=== PATIENT | male | born 1950 | race Caucasian/White ===

== ENCOUNTER 2016-05-02 10:58 | Emergency (ER) | payer OTHER ==
[~2016-05-02] VITALS: Ht 180.3 cm; Wt 70.1 kg
[~2016-05-02 10:58] MED LIST: ADVAIR 250/501 DISK; ADVAIR 250/501 DISK IH; ASPIRIN E.C.81 M1 PO; Aspirin E.C. PO; CARDIZEM CD,CA180 MG PO; DAILY VALUE1 EACH PO; DALIRESP500 MCG PO; DIGOXIN250 MCG PO; DULERA 100 MCG/13 GM IH; FISH OIL SOFTG1 EACH; FLONASE16 G1 BOTH NARES; HABITROL,NICODE14 MG TD; K-DUR10 MEQ PO; LASIX40 MG PO; LEVAQUIN750 MG PO; MIRAPEX0.5 MG PO; ONE DAILY FOR1 EACH; PREDNISONE10 MG PO; Proventil,Ventolin H IH; SPIRIVA1 INHALATI; SPIRIVA1 INHALATI IH; ST. JOSEPH ASPI81 MG PO; Sterapred DS 10 mg U PO; THEO-24200 MG PO; VENTOLIN HFA18 GM; VENTOLIN HFA18 GM IH; VITAMIN D31000 UNIT PO; WELLBUTRIN SR100 MG PO; WELLBUTRIN100 MG PO; ZITHROMAX250 MG PO
[2016-05-02] MEDS ORDERED: THIAMINE HCL100 MG PO (12:26)
[2016-05-02] MEDS ORDERED: PROGRAF1 MG PO (12:27)
[2016-05-02] MEDS ORDERED: CELLCEPT250 MG PO (12:29)
[2016-05-02] MEDS ORDERED: BACTRIM,SEPT1 TABLE1 PO (12:30)
[2016-05-02] MEDS ORDERED: VALCYTE450 MG PO (12:30)
[2016-05-02] MEDS ORDERED: VFEND200 MG PO (12:31)
[2016-05-02] MEDS ORDERED: METOPROLOL TART25 MG PO (12:32)
[2016-05-02] MEDS ORDERED: PROTONIX40 MG PO (12:32)
[2016-05-02] MEDS ORDERED: LIPITOR40 MG PO (12:33)
[2016-05-02] MEDS ORDERED: MAGNESIUM400 M1 PO (12:35)
[2016-05-02] MEDS ORDERED: FUROSEMIDE40 MG PO (12:36)
[2016-05-02] MEDS ORDERED: MUCINEX D ER T1 EACH PO (12:37)
[2016-05-02 13:30] LABS: HEMATOCRIT 30.9 % (38.0-50.0); MCH 28.4 PG (29.0-34.0); MCHC 30.7 G/DL (30.0-36.0); MCV 92.5 FL (86-99); MEAN PLAT.VOLUME 9.5 uM^3 (9.0-12.4); PLATELET COUNT 217 K/uL (156-360); RBC DIS.WIDTH-SD 49.3 % (39-53); RED BLOOD COUNT 3.34 M/uL (4.00-5.50); WHITE BLOOD COUNT 5.9 K/uL (4.1-10.2)
[2016-05-02 13:39] LABS: INTER. NORMALIZED RATIO 1.1; PTT 24.4 (25-32)
[2016-05-02 13:40] LABS: CHLORIDE 104 mEq/L (99-109); POTASSIUM 4.6 mEq/L (3.7-5.4); SODIUM 140 mEq/L (136-147)
[2016-05-02 13:42] LABS: GLUCOSE 130 mg/dL (70-99)
[2016-05-02 13:44] LABS: ANION GAP 8 MEQ/L (2-14); TOTAL BILIRUBIN 0.3 mg/dL (0.0-1.0)
[2016-05-02 13:46] LABS: ALKALINE PHOSPHATASE 53 IU/L (3-129); GFR ESTIMATE (CALCULATED) 43 mL/min/
[2016-05-02 13:47] LABS: UREA NITROGEN (BUN) 35 mg/dL (9-23)
[2016-05-02 15:53] VITALS: BP 103/50
[2016-05-02] MEDS ORDERED: OS-CAL 500+D31 EACH PO (15:56)
== END 2016-05-02 15:56 | disposition home or self-care (01) ==
LOC: EME 10:58
PROVIDERS: Emergency Medicine
DX: M79.671 Pain in right foot (principal); M79.89 Other specified soft tissue disorders; D64.9 Anemia, unspecified; N28.9 Disorder of kidney and ureter, unspecified; Z94.2 Lung transplant status; M79.604 Pain in right leg; R05 Cough; Z79.82 Long term (current) use of aspirin; Z87.891 Personal history of nicotine dependence
CPT/HCPCS: 71020; 80053; 85027; 85610; 85730; 93971; 99281; 99284

== ENCOUNTER 2016-06-16 17:29 | Emergency (ER) | payer OTHER ==
[~2016-06-16] VITALS: Ht 180.3 cm; Wt 62.2 kg
[~2016-06-16 17:29] MED LIST changes: +BACTRIM,SEPT1 TABLE1 PO; +CELLCEPT250 MG PO; +FUROSEMIDE40 MG PO; +LIPITOR40 MG PO; +MAGNESIUM400 M1 PO; +METOPROLOL TART25 MG PO; +MUCINEX D ER T1 EACH PO; +OS-CAL 500+D31 EACH PO; +PROGRAF1 MG PO; +PROTONIX40 MG PO; +THIAMINE HCL100 MG PO; +VALCYTE450 MG PO; +VFEND200 MG PO
[2016-06-16 18:16] LABS: HEMATOCRIT 32.6 % (38.0-50.0); MCH 28.5 PG (29.0-34.0); MCV 92.1 FL (86-99); MEAN PLAT.VOLUME 9.2 uM^3 (9.0-12.4); PLATELET COUNT 307 K/uL (156-360); RBC DIS.WIDTH-CV 13.6 % (11.8-14.6); RED BLOOD COUNT 3.54 M/uL (4.00-5.50); WHITE BLOOD COUNT 3.9 K/uL (4.1-10.2)
[2016-06-16 18:29] LABS: CHLORIDE 107 mEq/L (99-109); SODIUM 141 mEq/L (136-147)
[2016-06-16 18:31] LABS: GLUCOSE 127 mg/dL (70-99)
[2016-06-16 18:32] LABS: ANION GAP 8 MEQ/L (2-14)
[2016-06-16 18:34] LABS: GFR ESTIMATE (CALCULATED) 50 mL/min/
[2016-06-16 18:35] LABS: UREA NITROGEN (BUN) 28 mg/dL (9-23)
[2016-06-16 18:38] LABS: TROP-I INTERPRETATION NEGATIVE; TROPONIN-I < 0.01 ng/mL (0.0-0.30)
[2016-06-16 22:50] LABS: TROP-I INTERPRETATION NEGATIVE; TROPONIN-I < 0.01 ng/mL (0.0-0.30)
[2016-06-17] VITALS: BP 132/66
== END 2016-06-17 00:22 | disposition home or self-care (01) ==
LOC: EME 17:29
PROVIDERS: Emergency Medicine
DX: R06.00 Dyspnea, unspecified (principal); R05 Cough; R07.89 Other chest pain; Z94.2 Lung transplant status; Z79.82 Long term (current) use of aspirin; Z87.891 Personal history of nicotine dependence
CPT/HCPCS: 71020; 78582; 80048; 83880; 84484; 85027; 93005; 99281; 99285; A9540; A9567

== ENCOUNTER 2016-07-13 19:37 | Inpatient (IN) | payer OTHER ==
[~2016-07-13] VITALS: Ht 180.3 cm; Wt 93.0 kg
[2016-07-13 20:10] LABS: HEMATOCRIT 30.8 % (38.0-50.0); MCH 28.3 PG (29.0-34.0); MCHC 31.2 G/DL (30.0-36.0); MCV 90.9 FL (86-99); MEAN PLAT.VOLUME 8.9 uM^3 (9.0-12.4); PLATELET COUNT 282 K/uL (156-360); RBC DIS.WIDTH-CV 13.1 % (11.8-14.6); RBC DIS.WIDTH-SD 43.3 % (39-53); RED BLOOD COUNT 3.39 M/uL (4.00-5.50)
[2016-07-13 20:13] LABS: WHITE BLOOD COUNT 2.6 K/uL (4.1-10.2)
[2016-07-13 20:19] LABS: CHLORIDE 105 mEq/L (99-109); POTASSIUM 4.8 mEq/L (3.7-5.4); SODIUM 139 mEq/L (136-147)
[2016-07-13 20:20] LABS: GLUCOSE 94 mg/dL (70-99)
[2016-07-13 20:22] LABS: ANION GAP 9 MEQ/L (2-14)
[2016-07-13 20:24] LABS: GFR ESTIMATE (CALCULATED) 40 mL/min/
[2016-07-13 20:25] LABS: UREA NITROGEN (BUN) 31 mg/dL (9-23)
[2016-07-13 20:31] LABS: TROP-I INTERPRETATION NEGATIVE; TROPONIN-I 0.02 ng/mL (0.0-0.30)
[2016-07-13] MEDS ORDERED: FUROSEMIDE20 MG PO (21:53)
[2016-07-13] MEDS ORDERED: PREDNISONE10 MG PO (21:56)
[2016-07-13] MEDS ORDERED: PROGRAF0.5 MG PO (21:57)
[2016-07-13] MEDS ORDERED: NOVOLOG 10100 UNITS/ SC (21:58)
[2016-07-13] MEDS ORDERED: BACTRIM,SEPT1 TABLE1 PO (21:58)
[2016-07-13] MEDS ORDERED: PRAMIPEXOLE DI0.5 MG PO (21:58)
[2016-07-14 00:45] VITALS: BP 126/61
[2016-07-14 02:40] LABS: TROP-I INTERPRETATION NEGATIVE; TROPONIN-I < 0.01 ng/mL (0.0-0.30)
[2016-07-14 04:40] VITALS: BP 120/65
[2016-07-14 07:15] VITALS: BP 98/56
[2016-07-14 07:40] LABS: POINT-OF-CARE METER ID UU13113831
[2016-07-14 09:40] LABS: HEMATOCRIT 31.3 % (38.0-50.0); MCH 27.6 PG (29.0-34.0); MCV 91.8 FL (86-99); MEAN PLAT.VOLUME 9.2 uM^3 (9.0-12.4); PLATELET COUNT 266 K/uL (156-360); RBC DIS.WIDTH-CV 13.2 % (11.8-14.6); RBC DIS.WIDTH-SD 44.4 % (39-53); RED BLOOD COUNT 3.41 M/uL (4.00-5.50); WHITE BLOOD COUNT 2.3 K/uL (4.1-10.2)
[2016-07-14 10:11] LABS: TROP-I INTERPRETATION NEGATIVE; TROPONIN-I 0.01 ng/mL (0.0-0.30)
[2016-07-14 10:41] LABS: ANION GAP 11 MEQ/L (2-14); CHLORIDE 101 MEQ/L (99-109); GFR ESTIMATE (CALCULATED) 54 mL/min/; GLUCOSE 100 mg/dL (70-99); POTASSIUM 4.2 MEQ/L (3.7-5.4); SAMPLE HEMOLYSIS CHECK 0; SAMPLE ICTERIC CHECK 0; SAMPLE LIPEMIA CHECK 0; SODIUM 136 MEQ/L (136-147); UREA NITROGEN (BUN) 22 mg/dL (9-23)
[2016-07-14 10:59] VITALS: BP 99/56
[2016-07-14 12:15] LABS: POINT-OF-CARE METER ID UU14162513
[2016-07-14 15:58] VITALS: BP 109/54
[2016-07-14 16:17] LABS: POINT-OF-CARE METER ID UU14149397
[2016-07-14 23:12] LABS: INFLUENZA A VIRAL ANTIGEN NEGATIVE; INFLUENZA B VIRAL ANTIGEN NEGATIVE
[2016-07-15 00:17] LABS: POINT-OF-CARE METER ID UU14188577
[2016-07-15 00:33] VITALS: BP 101/54
[2016-07-15 03:43] VITALS: BP 116/67
[2016-07-15 04:45] LABS: HEMATOCRIT 28.2 % (38.0-50.0); MCH 27.6 PG (29.0-34.0); MCHC 30.5 G/DL (30.0-36.0); MCV 90.4 FL (86-99); MEAN PLAT.VOLUME 9.4 uM^3 (9.0-12.4); PLATELET COUNT 246 K/uL (156-360); RBC DIS.WIDTH-SD 42.3 % (39-53); RED BLOOD COUNT 3.12 M/uL (4.00-5.50); WHITE BLOOD COUNT 2.2 K/uL (4.1-10.2)
[2016-07-15 05:00] LABS: CHLORIDE 105 mEq/L (99-109); POTASSIUM 4.4 mEq/L (3.7-5.4); SODIUM 138 mEq/L (136-147)
[2016-07-15 05:01] LABS: GLUCOSE 93 mg/dL (70-99)
[2016-07-15 05:03] LABS: ANION GAP 6 MEQ/L (2-14)
[2016-07-15 05:05] LABS: GFR ESTIMATE (CALCULATED) 54 mL/min/
[2016-07-15 05:06] LABS: UREA NITROGEN (BUN) 22 mg/dL (9-23)
[2016-07-15 06:19] LABS: POINT-OF-CARE METER ID UU14149397
[2016-07-15 07:00] VITALS: BP 116/68
[2016-07-15 08:05] LABS: ADD MIUA? YES; BILIRUBIN NEGATIVE; BLOOD SMALL; COLOR YELLOW ((YELLOW)); GLUCOSE (STRIP) NEGATIVE; KETONES NEGATIVE; LEUKOCYTES MODERATE; NITRITE NEGATIVE; PROTEIN (STRIP) NEGATIVE; SPECIFIC GRAVITY 1.014 (1.000-1.030); UROBILINOGEN 0.2 MG/DL (0.2-1.0)
[2016-07-15 08:12] LABS: BACTERIA RARE /HPF; BUDDING YEAST 2+; EPITHELIAL CELLS RARE /HPF; HYALINE CASTS 0-5 /LPF; MUCUS TRACE /LPF; UCUL ADDED? NO; UNCLASSIFIED CRYSTALS 2+ /HPF; WHITE BLOOD CELLS 20-30 /HPF (0-5)
[2016-07-15 11:08] VITALS: BP 119/63
[2016-07-15 14:26] VITALS: BP 104/59
[2016-07-15 16:28] LABS: POINT-OF-CARE METER ID UU14149397
== END 2016-07-15 18:25 | disposition short-term general hospital (02) | DRG 809 ==
LOC: EME 19:37 → EDOF 22:59 → 5WEST 22:59 → 3EAST 07-14 15:21
PROVIDERS: Family Medicine; Internal Medicine
DX: D70.2 Other drug-induced agranulocytosis (principal); R50.81 Fever presenting with conditions classified elsewhere; T45.1X5A Adverse effect of antineoplastic and immunosuppressive drugs, initial encounter; R65.10 Systemic inflammatory response syndrome (SIRS) of non-infectious origin without acute organ dysfunction; E09.9 Drug or chemical induced diabetes mellitus without complications; T38.0X5A Adverse effect of glucocorticoids and synthetic analogues, initial encounter; Z79.4 Long term (current) use of insulin; Z94.2 Lung transplant status; R30.0 Dysuria; K31.89 Other diseases of stomach and duodenum; J44.9 Chronic obstructive pulmonary disease, unspecified; R07.89 Other chest pain; I47.1 Supraventricular tachycardia; I48.0 Paroxysmal atrial fibrillation; J90 Pleural effusion, not elsewhere classified; J98.11 Atelectasis; N18.3 Chronic kidney disease, stage 3 (moderate); F41.9 Anxiety disorder, unspecified; R01.1 Cardiac murmur, unspecified; Z87.01 Personal history of pneumonia (recurrent); Z87.891 Personal history of nicotine dependence; Z79.82 Long term (current) use of aspirin
CPT/HCPCS: 71020; 71250; 74000; 74176; 80048; 80197 90; 81003; 82948; 83605; 84484; 85027; 86140; 87040; 87502; 93005; 99281; 99285; G0103; G0378; J0692; J1650; J1815; J3370; J7030; J7050; J7507; J7512; J7517

== ENCOUNTER 2016-07-24 09:41 | Emergency (ER) | payer OTHER ==
[~2016-07-24] VITALS: Ht 180.3 cm; Wt 94.3 kg
[~2016-07-24 09:41] MED LIST changes: +FUROSEMIDE20 MG PO; +NOVOLOG 10100 UNITS/ SC; +PRAMIPEXOLE DI0.5 MG PO; +PROGRAF0.5 MG PO
[2016-07-24 10:37] LABS: INTER. NORMALIZED RATIO 1.1; PROTHROMBIN TIME 11.2 (9.2-11.2); PTT 31.4 (25-32)
[2016-07-24 10:42] LABS: CHLORIDE 99 mEq/L (99-109); POTASSIUM 5.2 mEq/L (3.7-5.4); SODIUM 131 mEq/L (136-147)
[2016-07-24 10:44] LABS: GLUCOSE 98 mg/dL (70-99)
[2016-07-24 10:45] LABS: ANION GAP 11 MEQ/L (2-14)
[2016-07-24 10:48] LABS: GFR ESTIMATE (CALCULATED) 40 mL/min/
[2016-07-24 10:49] LABS: UREA NITROGEN (BUN) 31 mg/dL (9-23)
[2016-07-24 10:55] LABS: TROP-I INTERPRETATION NEGATIVE; TROPONIN-I < 0.01 ng/mL (0.0-0.30)
[2016-07-24 11:01] LABS: INFLUENZA A VIRAL ANTIGEN NEGATIVE; INFLUENZA B VIRAL ANTIGEN NEGATIVE
[2016-07-24 11:01] LABS: MCH 27.7 PG (29.0-34.0); MCHC 31.9 G/DL (30.0-36.0); MCV 86.8 FL (86-99); MEAN PLAT.VOLUME 9.5 uM^3 (9.0-12.4); RBC DIS.WIDTH-CV 12.8 % (11.8-14.6); RBC DIS.WIDTH-SD 40.8 % (39-53); RED BLOOD COUNT 3.11 M/uL (4.00-5.50)
[2016-07-24 11:15] LABS: PLATELET COUNT 384 K/uL (156-360); WHITE BLOOD COUNT 1.6 K/uL (4.1-10.2)
[2016-07-24 11:16] LABS: ADD MIUA? YES; BILIRUBIN NEGATIVE; BLOOD SMALL; COLOR YELLOW ((YELLOW)); GLUCOSE (STRIP) NEGATIVE; KETONES 5; LEUKOCYTES NEGATIVE; NITRITE NEGATIVE; PROTEIN (STRIP) 100; SPECIFIC GRAVITY 1.025 (1.000-1.030); UROBILINOGEN 0.2 MG/DL (0.2-1.0)
[2016-07-24 11:44] LABS: BACTERIA NONE SEEN /HPF; EPITHELIAL CELLS RARE /HPF; HYALINE CASTS 0-5 /LPF; MUCUS TRACE /LPF; UCUL ADDED? NO
[2016-07-24 12:01] LABS: ABS NEUTROPHIL COUNT 0.7; EOSINOPHIL ABS CT 0; INSTRUMENT ABS NEUTROPHIL CT 0.7 K/uL; PLAT.SUFFICIENCY ADEQUATE
[2016-07-24] MEDS ORDERED: DOXYCYCLINE HY100 MG PO (18:41)
[2016-07-24 22:21] VITALS: BP 121/74
== END 2016-07-24 22:23 | disposition short-term general hospital (02) ==
LOC: EME → EDBD 09:41 → EME 22:23
PROVIDERS: Emergency Medicine
DX: D70.9 Neutropenia, unspecified (principal); B97.0 Adenovirus as the cause of diseases classified elsewhere; R50.81 Fever presenting with conditions classified elsewhere; Z94.2 Lung transplant status; Z87.891 Personal history of nicotine dependence; Z79.899 Other long term (current) drug therapy
CPT/HCPCS: 71010; 80048; 81003; 83605; 84484; 85025; 85610; 85730; 87040; 87077; 87502; 93005; 99281; 99285; J2543; J3370

== ENCOUNTER 2016-09-04 15:45 | Emergency (ER) | payer OTHER ==
[~2016-09-04] VITALS: Ht 180.3 cm; Wt 94.4 kg
[~2016-09-04 15:45] MED LIST changes: +DOXYCYCLINE HY100 MG PO
[2016-09-04 17:13] LABS: HEMATOCRIT 31.9 % (38.0-50.0); MCH 29.6 PG (29.0-34.0); MCV 95.2 FL (86-99); MEAN PLAT.VOLUME 8.9 uM^3 (9.0-12.4); PLATELET COUNT 304 K/uL (156-360); RBC DIS.WIDTH-SD 59.6 % (39-53); RED BLOOD COUNT 3.35 M/uL (4.00-5.50); WHITE BLOOD COUNT 8.9 K/uL (4.1-10.2)
[2016-09-04 17:56] VITALS: BP 131/67
[2016-09-04 17:59] LABS: ABS NEUTROPHIL COUNT 8.3; ANISOCYTOSIS 1+; BAND NEUTROPHILS 29.5 % (0-8.0); EOSINOPHIL ABS CT 0; HELMET CELLS 1+; HYPOCHROMASIA 1+; INSTRUMENT ABS NEUTROPHIL CT 6.3 K/uL; LYMPHOCYTES 4.4 % (15.0-45.0); OVALOCYTES 1+; PLAT.SUFFICIENCY ADEQUATE; POIKILOCYTOSIS 1+; SEG.NEUTROPHILS 63.4 % (46.0-76.0); SMUDGE CELLS 15.2; STOMATOCYTES 1+
== END 2016-09-04 17:59 | disposition home or self-care (01) ==
LOC: EME 15:45
PROVIDERS: Physician Assistant
DX: R60.0 Localized edema (principal); S81.801A Unspecified open wound, right lower leg, initial encounter; W20.8XXA Other cause of strike by thrown, projected or falling object, initial encounter; Y93.H2 Activity, gardening and landscaping; Y92.096 Garden or yard of other non-institutional residence as the place of occurrence of the external cause; Z94.2 Lung transplant status; Z79.82 Long term (current) use of aspirin; Z87.891 Personal history of nicotine dependence
CPT/HCPCS: 80053; 85025; 99281; 99283

== ENCOUNTER 2016-09-25 11:11 | Emergency (ER) | payer OTHER ==
[~2016-09-25] VITALS: Ht 180.3 cm; Wt 97.4 kg
[2016-09-25 14:00] VITALS: BP 126/70
== END 2016-09-25 14:00 | disposition home or self-care (01) ==
LOC: EME 11:11
DX: S20.212A Contusion of left front wall of thorax, initial encounter (principal); W22.8XXA Striking against or struck by other objects, initial encounter; Z94.2 Lung transplant status; Z87.891 Personal history of nicotine dependence
CPT/HCPCS: 71101; 99281; 99283

== ENCOUNTER 2016-10-23 18:28 | Inpatient (IN) | payer OTHER ==
[~2016-10-23] VITALS: Ht 180.3 cm; Wt 104.7 kg
[2016-10-23 20:14] LABS: HEMATOCRIT 38.7 % (38.0-50.0); MCH 28.8 PG (29.0-34.0); MCV 92.8 FL (86-99); MEAN PLAT.VOLUME 9.8 uM^3 (9.0-12.4); PLATELET COUNT 270 K/uL (156-360); RBC DIS.WIDTH-CV 15.5 % (11.8-14.6); RBC DIS.WIDTH-SD 52.9 % (39-53); RED BLOOD COUNT 4.17 M/uL (4.00-5.50); WHITE BLOOD COUNT 11.9 K/uL (4.1-10.2)
[2016-10-23 20:22] LABS: INTER. NORMALIZED RATIO 1.1; PROTHROMBIN TIME 11.2 (9.2-11.2); PTT 34.3 (25-32)
[2016-10-23 20:23] LABS: CHLORIDE 108 mEq/L (99-109); POTASSIUM 4.6 mEq/L (3.7-5.4); SODIUM 143 mEq/L (136-147)
[2016-10-23 20:25] LABS: GLUCOSE 72 mg/dL (70-99)
[2016-10-23 20:26] LABS: ANION GAP 7 MEQ/L (2-14)
[2016-10-23 20:29] LABS: GFR ESTIMATE (CALCULATED) 54 mL/min/
[2016-10-23 20:30] LABS: UREA NITROGEN (BUN) 37 mg/dL (9-23)
[2016-10-23] MEDS ORDERED: LASIX20 MG PO (23:33)
[2016-10-23] MEDS ORDERED: CELLCEPT250 MG PO (23:36)
[2016-10-23] MEDS ORDERED: NOXAFIL100 MG PO (23:40)
[2016-10-23] MEDS ORDERED: IRON325 M1 PO (23:41)
[2016-10-23] MEDS ORDERED: NEURONTIN100 MG PO (23:42)
[2016-10-23] MEDS ORDERED: FLONASE16 G1 BOTH NARES (23:42)
[2016-10-23] MEDS ORDERED: ROXICODONE5 MG PO (23:43)
[2016-10-23] MEDS ORDERED: LOVENOX40 MG/0.4 SC (23:45)
[2016-10-24 07:16] VITALS: BP 116/61
[2016-10-24 11:37] VITALS: BP 116/60
[2016-10-24 15:42] VITALS: BP 112/73
[2016-10-24 18:21] LABS: ANION GAP 9 MEQ/L (2-14); CHLORIDE 106 MEQ/L (99-109); GFR ESTIMATE (CALCULATED) 54 mL/min/; SAMPLE HEMOLYSIS CHECK 2; SAMPLE ICTERIC CHECK 0; SAMPLE LIPEMIA CHECK 0; UREA NITROGEN (BUN) 28 mg/dL (9-23)
[2016-10-24 18:33] LABS: GLUCOSE 157 mg/dL (70-99); POTASSIUM 5.6 MEQ/L (3.7-5.4); SODIUM 134 MEQ/L (136-147)
[2016-10-24 19:36] VITALS: BP 114/52
[2016-10-24 23:18] VITALS: BP 143/66
== END 2016-10-25 03:18 | disposition short-term general hospital (02) | DRG 603 ==
LOC: EME 18:28 → EDOF 10-24 02:33 → 4EAST 10-24 06:56
PROVIDERS: Internal Medicine Nephrology; Physician Assistant
DX: L03.115 Cellulitis of right lower limb (principal); F41.9 Anxiety disorder, unspecified; J44.9 Chronic obstructive pulmonary disease, unspecified; N18.3 Chronic kidney disease, stage 3 (moderate); Z94.2 Lung transplant status; Z79.52 Long term (current) use of systemic steroids; Z87.891 Personal history of nicotine dependence
CPT/HCPCS: 73590; 73610; 73630; 73701; 80048; 80069; 80197 90; 81003; 82043; 82570; 83605; 84300; 84550; 85025; 85027; 85610; 85730; 87040; 93971; 99281; 99285; J0690; J0692; J1170; J1650; J1885; J2270; J2543; J3360; J3370; J7030; J7050; J7507; J7512; J7517

== ENCOUNTER → 2016-11-27 | Outpatient (CLI) | payer OTHER ==
[~2016-11-27] MED LIST changes: +IRON325 M1 PO; +LASIX20 MG PO; +LOVENOX40 MG/0.4 SC; +NEURONTIN100 MG PO; +NOXAFIL100 MG PO; +ROXICODONE5 MG PO
== END | disposition home or self-care (01) ==
LOC: RES 08:38
DX: Z94.2 Lung transplant status (principal); T86.810 Lung transplant rejection; D84.9 Immunodeficiency, unspecified; Z79.899 Other long term (current) drug therapy
CPT/HCPCS: 94010

== ENCOUNTER 2016-12-01 13:59 | Emergency (ER) | payer OTHER ==
[~2016-12-01] VITALS: Ht 177.8 cm; Wt 99.4 kg
[2016-12-01 16:45] LABS: HEMATOCRIT 38.4 % (38.0-50.0); MCH 28.8 PG (29.0-34.0); MCHC 31.8 G/DL (30.0-36.0); MCV 90.6 FL (86-99); MEAN PLAT.VOLUME 9.6 uM^3 (9.0-12.4); PLATELET COUNT 247 K/uL (156-360); RBC DIS.WIDTH-CV 14.3 % (11.8-14.6); RBC DIS.WIDTH-SD 47.4 % (39-53); RED BLOOD COUNT 4.24 M/uL (4.00-5.50)
[2016-12-01 16:54] LABS: CHLORIDE 103 mEq/L (99-109); POTASSIUM 4.9 mEq/L (3.7-5.4); SODIUM 137 mEq/L (136-147)
[2016-12-01 16:57] LABS: GLUCOSE 172 mg/dL (70-99)
[2016-12-01 16:58] LABS: ANION GAP 9 MEQ/L (2-14)
[2016-12-01 16:59] LABS: TOTAL BILIRUBIN 0.3 mg/dL (0.0-1.0)
[2016-12-01 17:00] LABS: ALKALINE PHOSPHATASE 81 IU/L (3-129); GFR ESTIMATE (CALCULATED) 40 mL/min/
[2016-12-01 17:01] LABS: UREA NITROGEN (BUN) 35 mg/dL (9-23)
[2016-12-01 17:29] LABS: ABS NEUTROPHIL COUNT 9.5; ANISOCYTOSIS 1+; BAND NEUTROPHILS 8.8 % (0-8.0); EOSINOPHIL ABS CT 0; INSTRUMENT ABS NEUTROPHIL CT 8.5 K/uL; LYMPHOCYTES 6.2 % (15.0-45.0); MACROCYTES 1+; METAMYELOCYTES 2.7 %; PLAT.SUFFICIENCY ADEQUATE; SEG.NEUTROPHILS 77.9 % (46.0-76.0)
[2016-12-01] MEDS ORDERED: KEFLEX500 MG PO (19:27)
[2016-12-01 21:57] VITALS: BP 154/83
== END 2016-12-01 21:58 | disposition home or self-care (01) ==
LOC: EME 13:59
PROVIDERS: Physician Assistant
DX: L03.116 Cellulitis of left lower limb (principal); N18.9 Chronic kidney disease, unspecified; I73.9 Peripheral vascular disease, unspecified; Z94.2 Lung transplant status; Z92.25 Personal history of immunosuppression therapy
CPT/HCPCS: 73590; 80053; 83605; 85025; 87040; 93971; 99281; 99285; J3370

== ENCOUNTER 2016-12-27 19:39 | Emergency (ER) | payer OTHER ==
[~2016-12-27] VITALS: Ht 180.3 cm; Wt 101.7 kg
[~2016-12-27 19:39] MED LIST changes: +KEFLEX500 MG PO
[2016-12-27 20:23] LABS: HEMATOCRIT 36.4 % (38.0-50.0); MCH 29.1 PG (29.0-34.0); MCHC 32.1 G/DL (30.0-36.0); MCV 90.5 FL (86-99); MEAN PLAT.VOLUME 9.1 uM^3 (9.0-12.4); PLATELET COUNT 220 K/uL (156-360); RBC DIS.WIDTH-CV 14.5 % (11.8-14.6); RBC DIS.WIDTH-SD 47.9 % (39-53); RED BLOOD COUNT 4.02 M/uL (4.00-5.50); WHITE BLOOD COUNT 8.9 K/uL (4.1-10.2)
[2016-12-27 20:32] LABS: CHLORIDE 107 mEq/L (99-109); POTASSIUM 4.8 mEq/L (3.7-5.4); SODIUM 140 mEq/L (136-147)
[2016-12-27 20:33] LABS: GLUCOSE 89 mg/dL (70-99)
[2016-12-27 20:35] LABS: ANION GAP 8 MEQ/L (2-14)
[2016-12-27 20:37] LABS: GFR ESTIMATE (CALCULATED) 46 mL/min/
[2016-12-27 20:38] LABS: UREA NITROGEN (BUN) 28 mg/dL (9-23)
[2016-12-27] MEDS ORDERED: LEVAQUIN750 MG PO (22:04)
[2016-12-27 23:11] VITALS: BP 121/69
== END 2016-12-27 23:12 | disposition home or self-care (01) ==
LOC: EME 19:39
DX: J90 Pleural effusion, not elsewhere classified (principal); N18.9 Chronic kidney disease, unspecified; Z94.2 Lung transplant status; Z87.891 Personal history of nicotine dependence; Z86.73 Personal history of transient ischemic attack (TIA), and cerebral infarction without residual deficits
CPT/HCPCS: 71020; 71250; 80048; 85027; 99281; 99285; J1956

== ENCOUNTER → 2017-02-12 | Outpatient (CLI) | payer OTHER | END | disposition home or self-care (01) | LOC: RES 10:48 | DX: Z79.899 Other long term (current) drug therapy (principal); Z94.2 Lung transplant status; D84.9 Immunodeficiency, unspecified; T86.810 Lung transplant rejection | CPT/HCPCS: 94010 ==

== ENCOUNTER 2017-03-09 04:11 | Observation (INO) | payer OTHER ==
[~2017-03-09] VITALS: Ht 177.8 cm; Wt 108.0 kg
[~2017-03-09 04:11] MED LIST changes: +CELLCEPT500 MG PO
[2017-03-09 04:51] LABS: HEMATOCRIT 36.6 % (38.0-50.0); MCH 29.1 PG (29.0-34.0); MCHC 31.7 G/DL (30.0-36.0); MCV 91.7 FL (86-99); MEAN PLAT.VOLUME 9.5 uM^3 (9.0-12.4); PLATELET COUNT 232 K/uL (156-360); RBC DIS.WIDTH-CV 13.8 % (11.8-14.6); RED BLOOD COUNT 3.99 M/uL (4.00-5.50); WHITE BLOOD COUNT 8.2 K/uL (4.1-10.2)
[2017-03-09 04:59] LABS: CHLORIDE 109 mEq/L (99-109); POTASSIUM 4.4 mEq/L (3.7-5.4); SODIUM 144 mEq/L (136-147)
[2017-03-09 05:01] LABS: GLUCOSE 97 mg/dL (70-99)
[2017-03-09 05:02] LABS: ANION GAP 9 MEQ/L (2-14)
[2017-03-09 05:03] LABS: TOTAL BILIRUBIN 0.4 mg/dL (0.0-1.0)
[2017-03-09 05:05] LABS: ALKALINE PHOSPHATASE 66 IU/L (3-129); GFR ESTIMATE (CALCULATED) 46 mL/min/
[2017-03-09 05:06] LABS: UREA NITROGEN (BUN) 42 mg/dL (9-23)
[2017-03-09 06:46] LABS: ADD MIUA? NO; BILIRUBIN NEGATIVE; BLOOD NEGATIVE; COLOR STRAW ((YELLOW)); GLUCOSE (STRIP) NEGATIVE; KETONES NEGATIVE; LEUKOCYTES NEGATIVE; NITRITE NEGATIVE; PROTEIN (STRIP) NEGATIVE; SPECIFIC GRAVITY 1.015 (1.000-1.030); UCUL ADDED? NO; UROBILINOGEN 0.2 MG/DL (0.2-1.0)
[2017-03-09 07:23] LABS: ABS NEUTROPHIL COUNT 5.4; ATYPICAL LYMPHOCYTE 7.8 %; BAND NEUTROPHILS 10.3 % (0-8.0); EOSINOPHIL ABS CT 0.1; EOSINOPHILS 0.9 % (0-5.0); INSTRUMENT ABS NEUTROPHIL CT 4.7 K/uL; LYMPHOCYTES 16.4 % (15.0-45.0); METAMYELOCYTES 2.6 %; PLAT.SUFFICIENCY ADEQUATE
[2017-03-09 07:27] LABS: TROP-I INTERPRETATION NEGATIVE; TROPONIN-I < 0.01 ng/mL (0.0-0.30)
[2017-03-09 10:08] LABS: INFLUENZA A VIRAL ANTIGEN NEGATIVE; INFLUENZA B VIRAL ANTIGEN NEGATIVE
[2017-03-09] MEDS ORDERED: THIAMINE HCL100 MG PO (11:48)
[2017-03-09 13:19] LABS: TROP-I INTERPRETATION NEGATIVE; TROPONIN-I < 0.01 ng/mL (0.0-0.30)
[2017-03-09 13:32] VITALS: BP 129/62
[2017-03-09 19:30] LABS: TROP-I INTERPRETATION NEGATIVE; TROPONIN-I 0.01 ng/mL (0.0-0.30)
[2017-03-09 20:00] VITALS: BP 125/60
[2017-03-09 22:58] VITALS: BP 118/58
[2017-03-10 03:52] VITALS: BP 148/67
[2017-03-10 06:08] LABS: ANION GAP 6 MEQ/L (2-14); CHLORIDE 104 MEQ/L (99-109); GFR ESTIMATE (CALCULATED) 50 mL/min/; GLUCOSE 103 mg/dL (70-99); POTASSIUM 4.2 MEQ/L (3.7-5.4); SAMPLE HEMOLYSIS CHECK 0; SAMPLE ICTERIC CHECK 0; SAMPLE LIPEMIA CHECK 0; SODIUM 137 MEQ/L (136-147); UREA NITROGEN (BUN) 34 mg/dL (9-23)
[2017-03-10 07:45] VITALS: BP 121/65
== END 2017-03-10 10:55 | disposition home or self-care (01) ==
LOC: EME 04:11 → EDOF 07:50 → ENRESERV 07:51 → CANRESERV 08:01 → EDOF 08:12 → ENRESERV 11:48 → 5WEST 13:23
PROVIDERS: Emergency Medicine; Internal Medicine
DX: R10.32 Left lower quadrant pain (principal); N20.0 Calculus of kidney; J90 Pleural effusion, not elsewhere classified; Z94.2 Lung transplant status; J44.9 Chronic obstructive pulmonary disease, unspecified; N18.3 Chronic kidney disease, stage 3 (moderate); M79.89 Other specified soft tissue disorders; F41.9 Anxiety disorder, unspecified; Z92.25 Personal history of immunosuppression therapy; Z86.73 Personal history of transient ischemic attack (TIA), and cerebral infarction without residual deficits; Z87.891 Personal history of nicotine dependence; Z82.5 Family history of asthma and other chronic lower respiratory diseases
CPT/HCPCS: 71020; 71250; 74176; 80048; 80053; 80197 90; 81003; 83605; 84484; 85025; 87040; 87502; 93005; 93970; 99281; 99285; G0378; J1644; J2270; J7030; J7040; J7507; J7512; J7517

== ENCOUNTER → 2017-03-14 | Outpatient (CLI) | payer OTHER | END | disposition home or self-care (01) | LOC: RES 09:51 | DX: Z94.2 Lung transplant status (principal); T86.810 Lung transplant rejection; D84.9 Immunodeficiency, unspecified; Z79.899 Other long term (current) drug therapy | CPT/HCPCS: 94010 ==

== ENCOUNTER 2017-03-22 10:01 | Observation (INO) | payer OTHER ==
[~2017-03-22] VITALS: Ht 180.3 cm; Wt 108.4 kg
[2017-03-22 11:04] LABS: HEMATOCRIT 38.4 % (38.0-50.0); MCH 29.3 PG (29.0-34.0); MCHC 32.6 G/DL (30.0-36.0); MCV 90.1 FL (86-99); MEAN PLAT.VOLUME 9.2 uM^3 (9.0-12.4); PLATELET COUNT 234 K/uL (156-360); RBC DIS.WIDTH-CV 13.5 % (11.8-14.6); RBC DIS.WIDTH-SD 44.8 % (39-53); RED BLOOD COUNT 4.26 M/uL (4.00-5.50)
[2017-03-22 11:05] LABS: ADD MIUA? YES; BILIRUBIN NEGATIVE; BLOOD NEGATIVE; COLOR YELLOW ((YELLOW)); GLUCOSE (STRIP) NEGATIVE; KETONES NEGATIVE; LEUKOCYTES TRACE; NITRITE NEGATIVE; PROTEIN (STRIP) 30; SPECIFIC GRAVITY 1.027 (1.000-1.030)
[2017-03-22 11:13] LABS: CHLORIDE 108 mEq/L (99-109); POTASSIUM 4.2 mEq/L (3.7-5.4); SODIUM 137 mEq/L (136-147)
[2017-03-22 11:15] LABS: GLUCOSE 111 mg/dL (70-99)
[2017-03-22 11:17] LABS: ANION GAP 6 MEQ/L (2-14)
[2017-03-22 11:19] LABS: BACTERIA NONE SEEN /HPF; EPITHELIAL CELLS RARE /HPF; HYALINE CASTS 0-5 /LPF; MUCUS 4+ /LPF; RED BLOOD CELLS 0-5 /HPF (0-5); WHITE BLOOD CELLS 0-5 /HPF (0-5)
[2017-03-22 11:19] LABS: GFR ESTIMATE (CALCULATED) 43 mL/min/
[2017-03-22 11:20] LABS: UREA NITROGEN (BUN) 29 mg/dL (9-23)
[2017-03-22 12:01] LABS: ABS NEUTROPHIL COUNT 5.3; BAND NEUTROPHILS 20.4 % (0-8.0); BASOPHILS 0.9 %; EOSINOPHIL ABS CT 0.1; EOSINOPHILS 0.9 % (0-5.0); HEMATOLOGY COMMENT 1 SN; INSTRUMENT ABS NEUTROPHIL CT 4.4 K/uL; LYMPHOCYTES 14.2 % (15.0-45.0); METAMYELOCYTES 3.5 %; MYELOCYTES 0.9 %; PLAT.SUFFICIENCY ADEQUATE; SEG.NEUTROPHILS 55.7 % (46.0-76.0); SMUDGE CELLS 4.4
[2017-03-22 14:43] VITALS: BP 131/67
[2017-03-22 20:00] VITALS: BP 149/65
[2017-03-22 23:35] VITALS: BP 143/89
[2017-03-23 05:28] LABS: MCH 29.3 PG (29.0-34.0); MCHC 31.6 G/DL (30.0-36.0); MCV 92.9 FL (86-99); MEAN PLAT.VOLUME 9.6 uM^3 (9.0-12.4); PLATELET COUNT 226 K/uL (156-360); RBC DIS.WIDTH-CV 13.4 % (11.8-14.6); RBC DIS.WIDTH-SD 45.6 % (39-53); RED BLOOD COUNT 4.09 M/uL (4.00-5.50); WHITE BLOOD COUNT 5.4 K/uL (4.1-10.2)
[2017-03-23 05:49] LABS: ANION GAP 5 MEQ/L (2-14); CHLORIDE 105 MEQ/L (99-109); GFR ESTIMATE (CALCULATED) 46 mL/min/; GLUCOSE 82 mg/dL (70-99); POTASSIUM 4.9 MEQ/L (3.7-5.4); SAMPLE HEMOLYSIS CHECK 0; SAMPLE ICTERIC CHECK 0; SAMPLE LIPEMIA CHECK 0; SODIUM 138 MEQ/L (136-147); UREA NITROGEN (BUN) 26 mg/dL (9-23)
[2017-03-23 07:42] VITALS: BP 127/71
[2017-03-23 11:30] VITALS: BP 153/79
== END 2017-03-23 13:05 | disposition home or self-care (01) ==
LOC: EME 10:01 → EDOF 12:08 → 5WEST 12:08 → ENRESERV 12:42 → EDOF 12:58 → ENRESERV 13:03 → 5WEST 14:28
PROVIDERS: Hospitalist; Physician Assistant
DX: R10.32 Left lower quadrant pain (principal); R10.84 Generalized abdominal pain; Z94.2 Lung transplant status; Z92.25 Personal history of immunosuppression therapy; Z87.442 Personal history of urinary calculi; Z87.891 Personal history of nicotine dependence; Z86.73 Personal history of transient ischemic attack (TIA), and cerebral infarction without residual deficits
CPT/HCPCS: 74176; 80048; 81003; 85025; 85027; 99281; 99285; G0378; J1650; J1885; J1956; J2405; J3010; J7030; J7507; J7512; J7517; S0030

== ENCOUNTER → 2017-04-13 | Outpatient (CLI) | payer OTHER | END | disposition home or self-care (01) | LOC: RES 10:48 | DX: Z79.899 Other long term (current) drug therapy (principal); D84.9 Immunodeficiency, unspecified; T86.810 Lung transplant rejection ==

== ENCOUNTER 2017-04-16 18:19 | Observation (INO) | payer OTHER ==
[~2017-04-16] VITALS: Ht 177.8 cm; Wt 107.8 kg
[2017-04-16 19:09] LABS: HEMATOCRIT 37.3 % (38.0-50.0); MCHC 33.2 G/DL (30.0-36.0); MCV 90.3 FL (86-99); MEAN PLAT.VOLUME 9.7 uM^3 (9.0-12.4); PLATELET COUNT 262 K/uL (156-360); RBC DIS.WIDTH-CV 13.4 % (11.8-14.6); RED BLOOD COUNT 4.13 M/uL (4.00-5.50); WHITE BLOOD COUNT 3.3 K/uL (4.1-10.2)
[2017-04-16 19:16] LABS: CHLORIDE 108 mEq/L (99-109); POTASSIUM 5.6 mEq/L (3.7-5.4); SODIUM 139 mEq/L (136-147)
[2017-04-16 19:18] LABS: GLUCOSE 173 mg/dL (70-99)
[2017-04-16 19:19] LABS: ANION GAP 8 MEQ/L (2-14)
[2017-04-16 19:22] LABS: GFR ESTIMATE (CALCULATED) 40 mL/min/ (58.99-99999); UREA NITROGEN (BUN) 35 mg/dL (9-23)
[2017-04-16 21:52] LABS: TROP-I INTERPRETATION NEGATIVE; TROPONIN-I < 0.01 ng/mL (0.0-0.30)
[2017-04-17 04:11] LABS: TROP-I INTERPRETATION NEGATIVE; TROPONIN-I < 0.01 ng/mL (0.0-0.30)
[2017-04-17 04:50] VITALS: BP 171/86
[2017-04-17 05:13] LABS: CHLORIDE 108 mEq/L (99-109); SODIUM 140 mEq/L (136-147)
[2017-04-17 05:14] LABS: GLUCOSE 125 mg/dL (70-99)
[2017-04-17 05:16] LABS: ANION GAP 8 MEQ/L (2-14)
[2017-04-17 05:18] LABS: GFR ESTIMATE (CALCULATED) 54 mL/min/ (58.99-99999)
[2017-04-17 05:19] LABS: UREA NITROGEN (BUN) 31 mg/dL (9-23)
[2017-04-17 05:30] LABS: POTASSIUM 4.3 mEq/L (3.7-5.4)
[2017-04-17 08:15] VITALS: BP 122/70
[2017-04-17 10:19] LABS: TROP-I INTERPRETATION NEGATIVE; TROPONIN-I < 0.01 ng/mL (0.0-0.30)
== END 2017-04-17 17:08 | disposition home or self-care (01) ==
LOC: EME 18:19 → EDOF 04-17 03:08 → ENRESERV 04-17 03:21 → 5WEST 04-17 04:07
PROVIDERS: Hospitalist
DX: R06.02 Shortness of breath (principal); Z94.2 Lung transplant status; R07.9 Chest pain, unspecified; E78.5 Hyperlipidemia, unspecified; R60.0 Localized edema; J90 Pleural effusion, not elsewhere classified; J44.9 Chronic obstructive pulmonary disease, unspecified; I12.9 Hypertensive chronic kidney disease with stage 1 through stage 4 chronic kidney disease, or unspecified chronic kidney disease; N18.3 Chronic kidney disease, stage 3 (moderate); Z92.25 Personal history of immunosuppression therapy; Z87.891 Personal history of nicotine dependence; E87.5 Hyperkalemia; D75.9 Disease of blood and blood-forming organs, unspecified; Z82.5 Family history of asthma and other chronic lower respiratory diseases; Z83.3 Family history of diabetes mellitus; Z79.82 Long term (current) use of aspirin
CPT/HCPCS: 71020; 71250; 78582; 80048; 83880; 84484; 85027; 87502; 87631; 93005; 93970; 99281; 99285; A9540; A9567; G0378; J7507; J7512; J7517

== ENCOUNTER → 2017-05-16 | Outpatient (CLI) | payer OTHER | END | disposition home or self-care (01) | LOC: RES 12:51 | DX: T86.810 Lung transplant rejection (principal); D84.9 Immunodeficiency, unspecified; Z79.899 Other long term (current) drug therapy | CPT/HCPCS: 94010 ==

== ENCOUNTER 2017-06-15 09:15 | Emergency (ER) | payer OTHER ==
[~2017-06-15] VITALS: Ht 177.8 cm; Wt 111.0 kg
[2017-06-15 10:23] LABS: HEMATOCRIT 34.6 % (38.0-50.0); HEMOGLOBIN 11.3 G/DL (12.5-16.6); MCH 28.6 PG (29.0-34.0); MCHC 32.7 G/DL (30.0-36.0); MCV 87.6 FL (86-99); PLATELET COUNT 235 K/uL (156-360); RBC DIS.WIDTH-CV 12.9 % (11.8-14.6); RED BLOOD COUNT 3.95 M/uL (4.00-5.50); WHITE BLOOD COUNT 4.2 K/uL (4.1-10.2)
[2017-06-15 10:40] LABS: ALBUMIN 3.4 g/dL (3.2-4.8); CHLORIDE 109 mEq/L (99-109); POTASSIUM 4.4 mEq/L (3.7-5.4); SODIUM 140 mEq/L (136-147)
[2017-06-15 10:42] LABS: GLUCOSE 95 mg/dL (70-99); TOTAL PROTEIN 5.9 g/dL (6.4-8.3)
[2017-06-15 10:44] LABS: TOTAL BILIRUBIN 0.4 mg/dL (0.0-1.0)
[2017-06-15 10:46] LABS: ALKALINE PHOSPHATASE 91 IU/L (3-129); CREATININE 1.4 mg/dL (0.6-1.3); GFR ESTIMATE (CALCULATED) 54 mL/min/ (58.99-99999)
[2017-06-15 10:47] LABS: UREA NITROGEN (BUN) 24 mg/dL (9-23)
[2017-06-15 10:48] LABS: AST (GOT) 21 IU/L (2-34)
[2017-06-15 10:49] LABS: ALT (GPT) 15 IU/L (3-49)
[2017-06-15 11:03] LABS: APPEARANCE CLEAR ((CLEAR)); BILIRUBIN NEGATIVE; BLOOD NEGATIVE; COLOR YELLOW ((YELLOW)); GLUCOSE (STRIP) NEGATIVE; KETONES NEGATIVE; LEUKOCYTES NEGATIVE; NITRITE NEGATIVE; PROTEIN (STRIP) NEGATIVE; SPECIFIC GRAVITY 1.026 (1.000-1.030); UCUL ADDED? NO; UROBILINOGEN 0.2 MG/DL (0.2-1.0)
[2017-06-15 12:46] LABS: INTER. NORMALIZED RATIO 1.1
[2017-06-15 13:44] LABS: TYPE OF FLUID PLEURAL
[2017-06-15 14:38] LABS: APPEARANCE CLOUDY-BLOODY; BODY FLUID EOSINOPHILS 0 % (0-25); BODY FLUID RBC'S 440000 /MM^3 (0-100); BODY FLUID WBC'S 1540 /MM^3 (0-500); MONONUCLEAR WBC'S 55 %; POLYNUCLEAR WBC'S 45 % (0-25)
[2017-06-15 14:46] LABS: BODY FLUID GLUCOSE 84 MG/DL; BODY FLUID LDH 561 IU/L
[2017-06-15 15:04] VITALS: BP 101/60
== END 2017-06-15 15:06 | disposition home or self-care (01) ==
LOC: EME 09:15
PROVIDERS: Emergency Medicine
PROC: 0W9B3ZZ Drainage of Left Pleural Cavity, Percutaneous Approach (ICD-10-PCS; principal; 2017-06-15)
DX: J90 Pleural effusion, not elsewhere classified (principal); R60.9 Edema, unspecified; J44.9 Chronic obstructive pulmonary disease, unspecified; F41.9 Anxiety disorder, unspecified; Z79.82 Long term (current) use of aspirin; Z87.891 Personal history of nicotine dependence; Z91.19 Patient's noncompliance with other medical treatment and regimen; Z87.442 Personal history of urinary calculi; Z94.2 Lung transplant status; Z86.73 Personal history of transient ischemic attack (TIA), and cerebral infarction without residual deficits; Z85.9 Personal history of malignant neoplasm, unspecified
CPT/HCPCS: 74177; 76942; 80053; 81003; 82945; 83605; 83615 91; 83880; 84157; 85027; 85610; 87070; 87075; 87205; 89051; 93005; 99281; 99285; J2270; J2405

== ENCOUNTER → 2017-06-20 | Outpatient (CLI) | payer OTHER | END | disposition home or self-care (01) | LOC: RES 06-15 13:00 | DX: Z94.2 Lung transplant status (principal); D84.9 Immunodeficiency, unspecified; Z79.899 Other long term (current) drug therapy | CPT/HCPCS: 94010 ==

== ENCOUNTER → 2017-07-16 | Outpatient (CLI) | payer OTHER | END | disposition home or self-care (01) | LOC: RES 09:48 | DX: Z79.899 Other long term (current) drug therapy (principal); D84.9 Immunodeficiency, unspecified; T86.810 Lung transplant rejection | CPT/HCPCS: 94010 ==

== ENCOUNTER 2017-07-28 08:18 | Emergency (ER) | payer OTHER ==
[~2017-07-28] VITALS: Ht 177.8 cm; Wt 113.9 kg
[2017-07-28 09:21] LABS: CHLORIDE 110 mEq/L (99-109); POTASSIUM 4.4 mEq/L (3.7-5.4); SODIUM 143 mEq/L (136-147)
[2017-07-28 09:23] LABS: GLUCOSE 87 mg/dL (70-99)
[2017-07-28 09:27] LABS: CREATININE 1.8 mg/dL (0.6-1.3); GFR ESTIMATE (CALCULATED) 40 mL/min/ (58.99-99999)
[2017-07-28 09:28] LABS: UREA NITROGEN (BUN) 37 mg/dL (9-23)
[2017-07-28 09:34] LABS: TROP-I INTERPRETATION NEGATIVE; TROPONIN-I < 0.01 ng/mL (0.0-0.30)
[2017-07-28 12:46] VITALS: BP 154/71
== END 2017-07-28 12:46 | disposition home or self-care (01) ==
LOC: EME 08:18
PROVIDERS: Physician Assistant
DX: J98.11 Atelectasis (principal); R07.89 Other chest pain; Z94.2 Lung transplant status; J44.9 Chronic obstructive pulmonary disease, unspecified; Z87.891 Personal history of nicotine dependence; F41.9 Anxiety disorder, unspecified; Z86.73 Personal history of transient ischemic attack (TIA), and cerebral infarction without residual deficits; Z87.442 Personal history of urinary calculi
CPT/HCPCS: 71045; 76604; 80048; 83880; 84484; 93005; 99281; 99285

== ENCOUNTER → 2017-08-22 | Outpatient (CLI) | payer OTHER | END | disposition home or self-care (01) | LOC: RES 11:36 | DX: Z79.899 Other long term (current) drug therapy (principal); Z94.2 Lung transplant status; D84.9 Immunodeficiency, unspecified; T86.810 Lung transplant rejection | CPT/HCPCS: 94010 ==

== ENCOUNTER → 2017-11-02 | Outpatient (CLI) | payer OTHER | END | disposition home or self-care (01) | LOC: RES 11:19 | DX: T86.810 Lung transplant rejection (principal); D84.9 Immunodeficiency, unspecified; Z79.899 Other long term (current) drug therapy | CPT/HCPCS: 94010 ==

== ENCOUNTER 2017-12-23 22:12 | Emergency (ER) | payer OTHER ==
[~2017-12-23] VITALS: Ht 177.8 cm; Wt 112.9 kg
[2017-12-24 01:09] VITALS: BP 136/75
== END 2017-12-24 01:10 | disposition home or self-care (01) ==
LOC: EME 22:12
PROC: 0HQEXZZ Repair Left Lower Arm Skin, External Approach (ICD-10-PCS; principal; 2017-12-23)
DX: S51.812A Laceration without foreign body of left forearm, initial encounter (principal); W25.XXXA Contact with sharp glass, initial encounter; Y93.89 Activity, other specified; Z87.891 Personal history of nicotine dependence
CPT/HCPCS: 99281; 99284